=== PATIENT | female | born 1955 | race African-American/Black ===

== ENCOUNTER 2018-10-21 16:29 | Emergency (ER) | payer MEDICAID, OTHER ==
[~2018-10-21] VITALS: Ht 167.6 cm; Wt 77.1 kg
--- NOTE | 2018-10-21 16:39 | NUR ---
ED Nurse Note: Pt BIBA from an interssection due to being ALOC. Pt presented to the ER agitated and would continuously repeat questions. Eyes appear to be red. Pt skin warm to touch. Pt denies pain. Pt refused to be in a hospital gown.
[2018-10-21 16:40] VITALS: BP 142/90
--- NOTE | 2018-10-21 17:36 | NUR ---
ED Nurse Note: While being seen by ERMD. Pt decided to go AMA even after explaining consequences. AMA form signed and given to pt. Pt left ER w/ steady gait and all her belongings.
[2018-10-21 17:37] VITALS: BP 157/30
--- NOTE | 2018-10-21 21:42 | Emergency Room Report ---
History of Present Illness General Chief Complaint: Altered Level of Consciousness Source: EMS Present Illness Allergies: Coded Allergies: UNABLE TO ASSESS (Unverified , 10/21/18) Patient History Now: No - UNK Reviewed Nursing Documentation: PMH: Agreed; PSxH: Agreed Nursing Documentation-PMH Past Medical History: Deferred Physical Exam Vital Signs Date Time Temp Pulse Resp B/P (MAP) Pulse Ox O2 Delivery O2 Flow Rate FiO2 10/21/18 16:26 104 18 137/80 100 Room Air 10/21/18 16:40 99 10/21/18 16:40 98.2 Medical Decision Making Last Vital Signs Date Time Temp Pulse Resp B/P (MAP) Pulse Ox O2 Delivery O2 Flow Rate FiO2 10/21/18 17:37 98.2 88 22 157/30 100 Room Air 10/21/18 16:40 99 Status: improved Disposition: HOME, SELF-CARE Condition: Stable Referrals: [facility],REFERR[facility] (PCP) Mark Oneal MD Oct 21, 2018 21:42
== END 2018-10-21 17:24 | disposition left against medical advice (07) ==
LOC: EDBD 16:29 → EMR 16:58
DX: Z53.21 Procedure and treatment not carried out due to patient leaving prior to being seen by health care provider (principal)
CPT/HCPCS: 99282